=== PATIENT | male | born 1970 | race Caucasian/White ===

== ENCOUNTER 2016-10-02 13:30 | Emergency (ER) | payer BC ==
[2016-10-02 16:59] VITALS: BP 145/100
--- NOTE | 2016-10-02 17:19 | UC ---
Ear Complaint HPI - HPI Summary HPI Summary: gradual swelling and redness in R earlobe starting 2 days ago. No piercings or trauma to the area, did not have any pre-existing cysts in the skin. No hx of skin infections or resistant pathogens. No fevers. - History of Current Complaint Chief Complaint: UCEar Stated Complaint: RIGHT EAR COMPLAINT Time Seen by Provider: 10/02/16 17:04 Hx Obtained From: Patient Onset/Duration: Gradual Onset, Lasting Days Severity Initially: Mild Severity Currently: Mild Associated Signs/Symptoms: Positive: Swelling @. Negative: Trauma to Ear, URI Symptoms - Allergies/Home Medications Allergies/Adverse Reactions: Allergies Allergy/AdvReac Type Severity Reaction Status Date / Time Erythromycin Allergy Intermediate Vomiting Verified 10/02/16 16:58 PMH/Surg Hx/FS Hx/Imm Hx GI/ History Of: Reports: Kidney Stones - CURRENT - Surgical History Surgical History: Yes Surgery Procedure, Year, and Place: 1999 REPAIR DEVIATED SEPTUM [place]. 1998 BILATERAL EYES LASER [place]. CYSTO STENT 04/06/15 - Family History Known Family History: Positive: Hypertension - Social History Occupation: Employed Full-time Alcohol Use: Rare Alcohol Amount: FEW DRINKS/YEAR Substance Use Type: None Smoking Status (MU): Never Smoked Tobacco Have You Smoked in the Last Year: No - Immunization History Most Recent Tetanus Shot: OVER 10 YEARS Review of Systems Constitutional: Negative Skin: Other - redness and swelling R earlobe Eyes: Negative ENT: Negative Respiratory: Negative Cardiovascular: Negative Gastrointestinal: Negative Genitourinary: Negative Motor: Negative Neurovascular: Negative Musculoskeletal: Negative Neurological: Negative Psychological: Negative All Other Systems Reviewed And Are Negative: Yes Physical Exam Triage Information Reviewed: Yes Appearance: Well-Appearing, No Pain Distress, Well-Nourished Vital Signs: Initial Vital Signs Temp 98.1 F 10/02/16 16:55 Pulse 73 10/02/16 16:55 Resp 16 10/02/16 16:55 BP 145/100 10/02/16 16:55 Pulse Ox 98 10/02/16 16:55 Vital Signs Reviewed: Yes Eye Exam: Normal Eyes: Positive: Conjunctiva Clear ENT: Positive: Pharynx normal, TMs normal, Other: - R earlobe red and trender Dental Exam: Normal Neck exam: Normal Neck: Positive: Supple, Nontender Respiratory Exam: Normal Respiratory: Positive: Chest non-tender, Lungs clear, Normal breath sounds, No respiratory distress, No accessory muscle use Cardiovascular Exam: Normal Cardiovascular: Positive: RRR, No Murmur Musculoskeletal Exam: Normal Neurological Exam: Normal Psychological Exam: Normal Skin Exam: Normal Ear Complaint Course/Dx - Differential Dx/Diagnosis Provider Diagnoses: R earlobe cellulitis Discharge - Discharge Plan Condition: Stable Disposition: HOME Prescriptions: Cephalexin CAP* [Keflex 500 CAP*] 1,000 mg PO BID #[id number] cap Patient Education Materials: Cellulitis (ED) Referrals: Jaylen Galvan DO [Primary Care Provider] - Additional Instructions: Apply warm soaks when possible -- don't poke or squeeze the area. If you do not see some improvement within the next 48 hours, please return here for a recheck.
== END 2016-10-02 17:27 | disposition home or self-care (01) ==
LOC: UCCORT 13:30
DX: H60.11 Cellulitis of right external ear (principal); Z88.1 Allergy status to other antibiotic agents
CPT/HCPCS: 99212; G0463

== ENCOUNTER 2016-10-05 09:20 | Emergency (ER) | payer BC ==
[2016-10-05 10:36] VITALS: BP 141/81
--- NOTE | 2016-10-05 10:38 | UC ---
Skin Complaint HPI - HPI Summary HPI Summary: right earlobe red, swollen, hot, tender to touch. HEre for same a few days ago, Rx Keflex, not helping. More redness, pain and swelling. NO drainage. No trauma. No piercing in this ear. - History of Current Complaint Chief Complaint: UCSkin Time Seen by Provider: 10/05/16 10:27 Stated Complaint: RE-CHECK RIGHT EAR Hx Obtained From: Patient Onset/Duration: Gradual Onset, Lasting Days - 6 Timing: Constant Onset Severity: Mild Current Severity: Mild Location: Other - right earlobe Character: Swelling, Pain, Redness Aggravating: Touch Alleviating: Nothing Associated Signs & Symptoms: Positive: Tenderness Related History: Insect Bite/Sting - wonders about this, did have some red dots behind ear when pain started - Allergy/Home Medications Allergies/Adverse Reactions: Allergies Allergy/AdvReac Type Severity Reaction Status Date / Time Erythromycin Allergy Intermediate Vomiting Verified 10/05/16 10:10 Review of Systems Constitutional: Negative Skin: Other - redness, swelling earlobe Eyes: Negative ENT: Negative Respiratory: Negative Cardiovascular: Negative Gastrointestinal: Negative Genitourinary: Negative Motor: Negative Neurovascular: Negative Musculoskeletal: Negative Neurological: Negative Psychological: Negative All Other Systems Reviewed And Are Negative: Yes PMH/Surg Hx/FS Hx/Imm Hx GI/ History Of: Reports: Kidney Stones - CURRENT - Surgical History Surgical History: Yes Surgery Procedure, Year, and Place: 1999 REPAIR DEVIATED SEPTUM [place]. 1998 BILATERAL EYES LASER [place]. CYSTO STENT 04/06/15 - Family History Known Family History: Positive: Hypertension - Social History Occupation: Employed Full-time - police lieutenant Lives: With Family Alcohol Use: Rare Alcohol Amount: FEW DRINKS/YEAR Substance Use Type: None Smoking Status (MU): Never Smoked Tobacco Have You Smoked in the Last Year: No - Immunization History Most Recent Tetanus Shot: OVER 10 YEARS Physical Exam Triage Information Reviewed: Yes Appearance: Well-Appearing, No Pain Distress, Well-Nourished Vital Signs: Initial Vital Signs Temp 97.8 F 10/05/16 10:11 Pulse 55 10/05/16 10:11 Resp 16 10/05/16 10:11 BP 141/81 10/05/16 10:11 Pulse Ox 99 10/05/16 10:11 Vital Signs Reviewed: Yes Eye Exam: Normal ENT Exam: Normal Neck exam: Normal Respiratory Exam: Normal Cardiovascular Exam: Normal Musculoskeletal Exam: Normal Neurological Exam: Normal Psychological Exam: Normal Skin Exam: Other - right earlobe slightly swollen, red, hot to touch, tender. No drainage. Skin slightly scaly and thickened. Canal and TM normal. No redness or swelling elsewhere Course/Dx - Differential Diagnoses - Skin Complaint Differential Diagnoses: Cellulitis - Diagnoses Provider Diagnoses: ear cellulitis Discharge - Discharge Plan Condition: Stable Disposition: HOME Prescriptions: Sulfamethox/Trimethoprim DS* [Bactrim DS 800/160 TAB*] 1 tab PO BID #20 tab Patient Education Materials: Cellulitis (ED) Referrals: Jaylen Galvan DO [Primary Care Provider] - Additional Instructions: Stop the cephalexin and start the Bactrim
== END 2016-10-05 10:43 | disposition home or self-care (01) ==
LOC: UCCORT 09:20
DX: H60.11 Cellulitis of right external ear (principal); Z88.1 Allergy status to other antibiotic agents; Z87.442 Personal history of urinary calculi
CPT/HCPCS: 99212; G0463